=== PATIENT | female | born 1955 | race Caucasian/White ===

== ENCOUNTER 2017-02-26 11:04 | Emergency (ER) | payer OTHER ==
[~2017-02-26] VITALS: Ht 152.4 cm; Wt 65.0 kg
[2017-02-26 11:14] VITALS: Ht 152.4 cm; Wt 65.0 kg
[2017-02-26] MEDS ORDERED: IBUP-1542 PO (11:40)
[2017-02-26] MEDS ORDERED: PRED20TA PO (11:40)
--- NOTE | 2017-02-26 11:43 | ERD ---
ER Documentation Chief Complaint Date/Time DATE: 02/26/17 TIME: 11:42 Chief Complaint SORETHROAT, COUGH & HEADACHE X5 DAYS HPI 60-year-old female presents with cough and sore throat bitemporal headache for last 5 days. She saw her primary doctor who prescribed Zithromax, Methergine with codeine and had a normal x-ray by report. She is also given Ventolin for possible wheeze. Patient states that the medications did not work. She has no history of chest pain, vomiting, abdominal pain, additional complaints ROS All systems reviewed and are negative except as per history of present illness. Medications Home Meds Active Scripts Ibuprofen* (Motrin*) 600 Mg Tab, 600 MG PO Q6, #15 TAB Prov:ALEJANDRO PETERSON MD 02/26/17 Prednisone* (Prednisone*) 20 Mg Tab, 40 MG PO DAILY for 4 Days, TAB Prov:ALEJANDRO PETERSON MD 02/26/17 Allergies Allergies: Coded Allergies: No Known Allergy (Unverified , 02/09/15) PMhx/Soc Medical and Surgical Hx: pt denies Medical Hx, pt denies Surgical Hx Hx Alcohol Use: No Hx Substance Use: No Hx Tobacco Use: No Physical Exam Vitals Vital Signs Date Time Temp Pulse Resp B/P Pulse Ox O2 Delivery O2 Flow Rate FiO2 02/26/17 11:14 97.9 89 20 148/63 97 Physical Exam Const: [] Alert, [id number]. Head: Atraumatic Eyes: Normal Conjunctiva ENT: Normal External Ears, Nose and Mouth. TMs normal oropharynx normal. Neck: Full range of motion..~ No meningismus. Resp: Clear to auscultation bilaterally. Slight dry cough with minimal wheezing, without rales or retractions appreciated Cardio: Regular rate and rhythm, no murmurs Abd: Soft, non tender, non distended. Normal bowel sounds Skin: No petechiae or rashes Back: No midline or flank tenderness Ext: No cyanosis, or edema Neur: Awake and alert Psych: Normal Mood and Affect Procedures/MDM Patient presents with URI symptoms despite antibiotics for last 5 days no evidence of respiratory distress or hypoxemia.. Suggestive of likely viral illness. Patient had a normal x-ray recently inserted and there is no signs or symptoms to suggest need for repeat x-ray. She was given a short course of prednisone for very mild reactive airway disease and will add ibuprofen for body aches. Patient is advised to allow a few more days for viral illness to resolve otherwise follow-up with primary doctor or return to the ER for any worsening symptoms. The patient was stable with no new complaints during the ER course. Clinically, there is no current evidence to suggest meningitis, sepsis, acute abdomen, pneumonia, acute coronary syndrome, pulmonary embolism, or any other emergent condition appearing to require further evaluation or hospitalization. The patient should certainly return for any new or worsening symptoms per the aftercare instructions. They should otherwise follow-up with her primary care doctor for reevaluation this week. Departure Diagnosis: Primary Impression: Cough Condition: Stable Patient Instructions: Uri, Viral, No Abx (Adult) Additional Instructions: Likely viral illness should resolve in the next 3-5 days. Recheck for any worsening symptoms or with primary care doctor. ALEJANDRO PETERSON MD Feb 26, 2017 11:43
[2017-02-26] MEDS ORDERED: ACETAMINOPHEN 325 MG TAB PO ONE (12:00)
[2017-02-26] MEDS ORDERED: predniSONE 20 MG TAB PO ONE (12:00)
== END 2017-02-26 12:21 | disposition home or self-care (01) ==
LOC: FTE 11:04
DX: R05 Cough (principal)
CPT/HCPCS: J7512; Z7502; Z7610; 99283